=== PATIENT | female | born 1955 | race Caucasian/White ===

== ENCOUNTER 2017-12-28 15:00 | Emergency (ER) | payer MEDICARE, OTHER ==
[~2017-12-28] VITALS: Ht 162.6 cm; Wt 83.0 kg
[2017-12-28 15:16] VITALS: BP 172/81; PULSE 73; RESP 18; TEMP 98.1; O2SAT 98
[2017-12-28 16:03] VITALS: BP 161/76; PULSE 69; RESP 18; O2SAT 98
[2017-12-28] MEDS ORDERED: SODIUM CHLORIDE 0.9% FLUSH 10 ML FLUSH IVF PRN (16:15)
--- NOTE | 2017-12-28 16:32 | PD ---
HPI Chief Complaint: Dizziness Time Seen by Provider: 15:59 Travel History International Travel<30 days: No Contact w/Intl Traveler<30days: No Traveled to known affect area: No History of Present Illness HPI The patient was seen and examined in the presence of the nurse. About 8 hours ago this patient was driving and developed dizziness and lightheadedness. No vertigo sensation. It lasted about 5 minutes. She did not lose consciousness. No headache or chest pain. She denies any significant medical problems. This was isolated and has not recurred since. Did not have it before. No history of cardiac disease. Symptom severity was moderate. No alleviating factors. No exacerbating factors. PFSH Past Medical History Medical History: Denies Significant Hx Respiratory: Yes (ASTHMA) Tetanus Vaccination: > 5 Years Influenza Vaccination: No ?: Not Menopausal: Yes Past Surgical History Surgical History: No Previous Surgery Social History Alcohol Use: No Tobacco Use: No Substance Use: No Allergies-Medications (Allergen,Severity, Reaction): Coded Allergies: No Known Allergies (Unverified , 12/28/17) Reported Meds & Prescriptions Reported Meds & Active Scripts Active No Active Prescriptions or Reported Medications Review of Systems General / Constitutional: No: Fever Eyes: No: Visual changes HENT: Positive: Lightheadedness, No: Headaches Cardiovascular: No: Chest Pain or Discomfort Respiratory: No: Shortness of Breath Gastrointestinal: No: Abdominal Pain Genitourinary: No: Dysuria Musculoskeletal: No: Pain Skin: No Rash Neurologic: Positive: Dizziness, No: Weakness Psychiatric: No: Depression Endocrine: No: Polydipsia Hematologic/Lymphatic: No: Easy Bruising Physical Exam Narrative GENERAL: Well-nourished, well-developed patient in no apparent distress. SKIN: Focused skin assessment reveals no rash and nodules. Skin is Warm and dry. HEAD: Atraumatic. Normocephalic. EYES: Pupils equal and round. No scleral icterus. No injection or drainage. ENT: No nasal bleeding or discharge. Mucous membranes pink and moist. NECK: Trachea midline. No JVD. CARDIOVASCULAR: Regular rate and rhythm. No murmur appreciated. RESPIRATORY: No accessory muscle use. Clear to auscultation. Breath sounds equal bilaterally. GASTROINTESTINAL: Abdomen soft, non-tender, nondistended. Hepatic and splenic margins not palpable. MUSCULOSKELETAL: No obvious deformities. No clubbing. No cyanosis. No edema. NEUROLOGICAL: Awake and alert. No obvious cranial nerve deficits. Motor grossly within normal limits. Normal speech. PSYCHIATRIC: Appropriate mood and affect; insight and judgment normal. Data Data Last Documented VS Vital Signs Date Time Temp Pulse Resp B/P (MAP) Pulse Ox O2 Delivery O2 Flow Rate FiO2 12/28/17 18:33 12/28/17 16:03 69 18 98 12/28/17 15:21 Room Air 12/28/17 15:16 98.1 Orders Orders Electrocardiogram (12/28/17 16:13) Basic Metabolic Panel (Bmp) (12/28/17 16:13) Complete Blood Count With Diff (12/28/17 16:13) Ecg Monitoring (12/28/17 16:13) Iv Access Insert/Monitor (12/28/17 16:13) Oximetry (12/28/17 16:13) Sodium Chloride 0.9% Flush (Ns Flush) (12/28/17 16:15) Labs Laboratory Tests Test 12/28/17 16:25 White Blood Count 4.9 TH/MM3 Red Blood Count 4.55 MIL/MM3 Hemoglobin 13.4 GM/DL Hematocrit 38.7 % Mean Corpuscular Volume 85.1 FL Mean Corpuscular Hemoglobin 29.5 PG Mean Corpuscular Hemoglobin Concent 34.7 % Red Cell Distribution Width 13.9 % Platelet Count 188 TH/MM3 Mean Platelet Volume 7.9 FL Neutrophils (%) (Auto) 54.5 % Lymphocytes (%) (Auto) 34.8 % Monocytes (%) (Auto) 8.3 % Eosinophils (%) (Auto) 2.0 % Basophils (%) (Auto) 0.4 % Neutrophils # (Auto) 2.7 TH/MM3 Lymphocytes # (Auto) 1.7 TH/MM3 Monocytes # (Auto) 0.4 TH/MM3 Eosinophils # (Auto) 0.1 TH/MM3 Basophils # (Auto) 0.0 TH/MM3 CBC Comment DIFF FINAL Differential Comment Blood Urea Nitrogen 12 MG/DL Creatinine 0.84 MG/DL Random Glucose 84 MG/DL Calcium Level 9.7 MG/DL Sodium Level 142 MEQ/L Potassium Level 3.9 MEQ/L Chloride Level 106 MEQ/L Carbon Dioxide Level 27.8 MEQ/L Anion Gap 8 MEQ/L Estimat Glomerular Filtration Rate 69 ML/MIN MDM Medical Decision Making Medical Screen Exam Complete: Yes Emergency Medical Condition: Yes Medical Record Reviewed: Yes Differential Diagnosis Vasovagal episode, cardiac arrhythmia, vertigo Narrative Course I have reviewed the patient's electronic medical record. Patient looks neurologically intact. I reviewed her EKG which is normal Extended cardiac monitoring reveals sinus rhythm without ectopy Labs sent Patient CBC and metabolic profiles are normal On recheck she is feeling fine without any symptoms. She had a presyncopal episode of unknown etiology but this was about 9 hours ago and has not recurred and was an isolated event. Recommend primary care follow-up Diagnosis Primary Impression: Pre-syncope Additional Instructions: The patient was advised to follow up with their physician and return if they worsen. Med/Other Pt SpecificInfo: Other Scripts No Active Prescriptions or Reported Meds Disposition: 01 DISCHARGE HOME Condition: Stable Jose Luis Kellogg MD Dec 28, 2017 16:32
[2017-12-28 17:10] LABS: AUTOMATED NEUTROPHIL # 2.7 TH/MM3 (1.8-7.7); BASOPHIL % 0.4 % (0.0-2.0); EOSINOPHIL # 0.1 TH/MM3 (0-0.4); HEMATOCRIT 38.7 % (35.0-46.0); HEMOGLOBIN 13.4 GM/DL (11.6-15.3); LYMPH % 34.8 % (9.0-44.0); LYMPHOCYTE # 1.7 TH/MM3 (1.0-4.8); MEAN CELL VOLUME 85.1 FL (80.0-100.0); MEAN CORPUSCULAR HEMOGLOBIN 29.5 PG (27.0-34.0); MEAN CORPUSCULAR HGB CONC 34.7 % (32.0-36.0); MEAN PLATELET VOLUME 7.9 FL (7.0-11.0); MONO % 8.3 % (0.0-8.0); MONOCYTE # 0.4 TH/MM3 (0-0.9); NEUT % 54.5 % (16.0-70.0); PLATELET COUNT 188 TH/MM3 (150-450); RED BLOOD COUNT 4.55 MIL/MM3 (4.00-5.30); RED CELL DISTRIBUTION WIDTH 13.9 % (11.6-17.2); WHITE BLOOD COUNT 4.9 TH/MM3 (4.0-11.0)
[2017-12-28 17:29] LABS: BICARBONATE 27.8 MEQ/L (21.0-32.0); CALCIUM 9.7 MG/DL (8.5-10.1); CREATININE 0.84 MG/DL (0.50-1.00)
--- NOTE | 2017-12-29 08:56 | EKG ---
Date Performed: 12/28/2017 Time Performed: 17:09:29 PTAGE: 62 years EKG: Sinus rhythm NONSPECIFIC T-WAVE ABNORMALITY BORDERLINE ECG PREVIOUS TRACING : 06/13/1996 23.56 Since the prior tracing, there has been no significant cotto DOCTOR: Felisa Dean Interpretating Date/Time 12/29/2017 08:54:14
== END 2017-12-28 19:12 | disposition home or self-care (01) ==
LOC: NEPC 15:00
DX: R55 Syncope and collapse (principal)
CPT/HCPCS: 80048; 85025; 93005; 99284

== ENCOUNTER → 2018-02-02 | Outpatient (CLI) | payer OTHER ==
--- NOTE | 2018-02-02 12:17 | RADRPT ---
EXAM DATE/TIME: 02/02/2018 10:22 [facility] COMPARISON: No previous studies available for comparison. INDICATIONS : Renal calculi. MEDICAL HISTORY : Renal calculi. SURGICAL HISTORY : Lithotripsy. ENCOUNTER: Initial ACUITY: 1 day PAIN SCORE: 0/10 LOCATION: Left Abdomen/flank. FINDINGS: There are 4 calcifications grouped together projected over the lower pole of left kidney measuring up to 4 mm in size. No calcifications are projected over the right kidney. In the pelvis, there are n umerous 3-5 mm calcifications which have appearance characteristic of phleboliths. There are several calcifications, however on the left side which are higher in location and cannot exclude distal uret eral stone. No dilated loops of small or large bowel. Mild stool right colon. CONCLUSION: 1. At least 4 calcifications measuring 4 mm or less projected of the left kidney. 2. Numerous calcifications in the pelvis, many of which are phleboliths. Cannot exclude 7 distal lef t ureteral stones. Joe Esteban MD on February 02, 2018 at 12:13 Board Certified Radiologist. This report was verified electronically.
== END ==
LOC: HRAD 10:02
PROVIDERS: ATTEND Family Medicine
DX: Z87.442 Personal history of urinary calculi (principal)
CPT/HCPCS: 74018